=== PATIENT | male | born 1945 | race Caucasian/White ===

== ENCOUNTER → 2017-10-09 | Outpatient (CLI) | payer MEDICARE ==
[2017-10-10 15:53] LABS: Herpes Simplex IgM Antibody Negative (NEG)
[2017-10-10 20:07] LABS: HSV II IgG Type Specific Ab Negative (NEG)
== END | disposition home or self-care (01) ==
LOC: LAB EV 15:22
PROVIDERS: Physician Assistant Medical
DX: R21 Rash and other nonspecific skin eruption (principal)
CPT/HCPCS: 86694; 86695; 86696